=== PATIENT | female | born 1985 | race Hispanic/Latino ===

== ENCOUNTER 2016-08-25 00:49 | Emergency (ER) | payer OTHER ==
[2016-08-25 01:06] VITALS: O2SAT 99
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
[2016-08-25 01:59] LABS: RBC URINE 4 /hpf (0-3); URINE BILIRUBIN NEGATIVE (NEGATIVE); URINE BLOOD 2+ (NEGATIVE); URINE COLOR Yellow (YELLOW); URINE GLUCOSE (UA) NORMAL (Normal); URINE KETONE NEGATIVE (NEGATIVE); URINE LEUKOCYTE ESTERASE NEG Leu/uL (Negative); URINE PROTEIN NEGATIVE (NEGATIVE); URINE UROBILINOGEN NORMAL mg/dL (0.2-1.0); WBC URINE 1 /hpf (0-5)
[2016-08-25 04:53] VITALS: BP 118/68; PULSE 70; RESP 14; TEMP 97.8
== END 2016-08-25 05:04 | disposition home or self-care (01) ==
LOC: C.ER 00:49
DX: T76.21XA Adult sexual abuse, suspected, initial encounter (principal)

== ENCOUNTER 2016-09-09 23:20 | Emergency (ER) | payer OTHER ==
[2016-09-09 23:45] VITALS: RESP 16; O2SAT 100
--- NOTE | 2016-09-10 00:48 | C.PDOC ---
History Of Present Illness A 30 y/o female c/o a painful lump to the rectum that she noticed today after her hard BM and pt reports as well that she ran out of anxiety meds and felt anxious today. Pt request refill of her anxiety medications. Pt denies fever, chills, rectal bleeding, abdominal pain, nausea, vomiting, diarrhea, constipation, or any other complaints. Time Seen by Provider: 09/10/16 00:07 Chief Complaint (Nursing): Anxiety History Per: Patient History/Exam Limitations: no limitations Onset/Duration Of Symptoms: Hrs Current Symptoms Are (Timing): Still Present Severity: Mild Recent travel outside of the [place]: No Additional History Per: Patient Past Medical History Reviewed: Historical Data, Nursing Documentation, Vital Signs Vital Signs: Last Vital Signs Temp 97.8 F 09/10/16 01:10 Pulse 106 H 09/10/16 01:10 Resp 16 09/10/16 01:10 BP 100/67 09/10/16 01:10 Pulse Ox 100 09/10/16 03:06 - Medical History PMH: Anxiety, Asthma, Bipolar Disorder Family History: States: Unknown Family Hx - Social History Hx Alcohol Use: No Hx Substance Use: No - Immunization History Hx Tetanus Toxoid Vaccination: No Hx Influenza Vaccination: No Hx Pneumococcal Vaccination: No Review Of Systems Except As Marked, All Systems Reviewed And Found Negative. Constitutional: Negative for: Fever, Chills Gastrointestinal: Negative for: Nausea, Vomiting, Abdominal Pain, Diarrhea, Constipation Genitourinary: Positive for: Pelvic Pain (Lump in rectum). Negative for: Other (Rectal bleeding) Psych: Positive for: Anxiety Physical Exam - Physical Exam Appears: Non-toxic, No Acute Distress (Calm) Skin: Warm, Dry Head: Atraumatic, Normacephalic Eye(s): bilateral: Normal Inspection, PERRL, EOMI Neck: Supple Chest: Symmetrical Cardiovascular: Rhythm Regular Respiratory: Normal Breath Sounds, No Rhonchi, No Wheezing Gastrointestinal/Abdominal: Soft, No Tenderness Rectal: No Melena, No Blood Streaked Stool, Hemorrhoids (Small external. No fissure or abscess), Tenderness (minimal tenderness at site) Extremity: Normal ROM, No Tenderness, No Pedal Edema, Capillary Refill (<2secs) , No Deformity, No Swelling Neurological/Psych: Oriented x3, Normal Speech, Normal Cognition, Other (No focal deficit) Gait: Steady ED Course And Treatment O2 Sat by Pulse Oximetry: 100 (RA) Pulse Ox Interpretation: Normal Progress Note: Impression: A 30 y/o female c/o a painful lump to the rectum and anxiety today. Plans: UA, reassess. Pt has appointment with psychiatrist in 2 days. Pt was given 2 days of medication course and was instructed to follow up with PMD as well if symptoms persists. Disposition Counseled Patient/Family Regarding: Diagnosis, Need For Followup, Rx Given - Disposition Referrals: Psychiatrist, PMD [Other] Disposition: HOME/ ROUTINE Disposition Time: 00:49 Condition: STABLE Additional Instructions: Do Sitz baths as explained Use anusol suppositories and stool softeners Keep appointment with your psychiatrist Return to ER if worse Prescriptions: Docusate Sodium [Colace] 100 mg PO TID #20 capsule Hydrocortisone [Anusol-HC] 25 mg RC BID #20 sup Lamotrigine [Lamictal] 150 mg PO HS #3 tab Risperidone [Risperdal] 0.5 mg PO BID #7 tablet Instructions: Hemorrhoids (ED), Anxiety (ED) - Clinical Impression Clinical Impression: Anxiety, External hemorrhoid - Scribe Statement The provider has reviewed the documentation as recorded by the Scribe Enedina lu All medical record entries made by the Losibnahum were at my direction and personally dictated by me. I have reviewed the chart and agree that the record accurately reflects my personal performance of the history, physical exam, medical decision making, and the department course for this patient. I have also personally directed, reviewed, and agree with the discharge instructions and disposition.
[2016-09-10 01:11] VITALS: BP 100/67; PULSE 106; TEMP 97.8
== END 2016-09-10 01:15 | disposition home or self-care (01) ==
LOC: C.ER 23:20
DX: K64.4 Residual hemorrhoidal skin tags (principal); F41.9 Anxiety disorder, unspecified

== ENCOUNTER 2017-08-16 22:47 | Emergency (ER) | payer MEDICAID, OTHER ==
[2017-08-16 22:48] VITALS: BMI 22.3
[2017-08-16 22:54] VITALS: BP 111/74; PULSE 95; RESP 16; TEMP 98.2; O2SAT 98
--- NOTE | 2017-08-16 23:17 | C.PDOC ---
History Of Present Illness 31 yo female come in request test. Pt reports, last menstrual 07/22/17, " missed few days now". Pt admits, test was negative at home few days ago " want to confirm". Otherwise, pt denies fever, chills, recent illness, abd. pain, N/V, denies vaginal irritation or discharges, vaginal bleeding, back pain, UTI sx. Ambulate to ED for evaluation, not in any apparent distress. Time Seen by Provider: 08/16/17 22:52 Chief Complaint (Nursing): Medical Clearance History Per: Patient Past Medical History Reviewed: Historical Data, Nursing Documentation, Vital Signs Vital Signs: Last Vital Signs Temp 98.2 F 08/16/17 22:52 Pulse 95 H 08/16/17 22:52 Resp 16 08/16/17 22:52 BP 111/74 08/16/17 22:52 Pulse Ox 98 08/16/17 23:20 - Medical History PMH: Anxiety, Asthma, Bipolar Disorder, Bronchitis, COPD, Depression, GERD, HTN (Not taking medication for HTN - Normal BP in ER), Hyperthyroidism, Migraine, Post Traumatic Stress Disorder Denies: Alzheimer's Disease, Anemia, Arthritis, Atrial Fibrillation, CAD, Cardia Arrhythmia, CHF, Crohn's Disease, Dementia, Diabetes, Diverticulitis, Emphysema, Fractures, Gastritis, Gall Bladder Disease, Hepatitis, HIV, Hypercholesterolemia, Hypothyroidism, Kidney Stones, Mitral Valve Prolapse, Multiple Sclerosis, Osteoporosis, Pancreatitis, Paranoia, Parkinson's Disease, Peripheral Edema, Pneumonia, Pulmonary Embolism, Chronic Kidney Disease, Rheumatoid Arthritis, Schizophrenia, Seizures, Sickle Cell Disease, Sexually Transmitted Disease, Sleep Apnea, TIA Surgical History: Denies: Appendectomy, CABG, Carotid Endarterectomy, Cholecystectomy, Coronary Stent, Pacemaker, Tonsillectomy Family History: States: Unknown Family Hx - Social History Hx Alcohol Use: No Hx Substance Use: No - Immunization History Hx Tetanus Toxoid Vaccination: No Hx Influenza Vaccination: No Hx Pneumococcal Vaccination: No Review Of Systems Except As Marked, All Systems Reviewed And Found Negative. Constitutional: Negative for: Fever, Chills ENT: Negative for: Throat Pain Cardiovascular: Negative for: Chest Pain, Paroxysmal Noc. Dyspnea Respiratory: Negative for: Cough, Shortness of Breath Gastrointestinal: Negative for: Nausea, Vomiting, Abdominal Pain Genitourinary: Negative for: Dysuria, Incontinence, Vaginal Discharge, Vaginal Bleeding Musculoskeletal: Negative for: Back Pain Neurological: Negative for: Headache, Dizziness Physical Exam - Physical Exam Appears: Well, Non-toxic, No Acute Distress Skin: Normal Color, Warm, Dry, No Rash Head: Normacephalic Eye(s): bilateral: PERRL Nose: No Flaring Oral Mucosa: Moist Throat: No Erythema Neck: Trachea Midline, Supple Cardiovascular: Rhythm Regular, No Murmur Respiratory: No Decreased Breath Sounds, No Accessory Muscle Use, No Stridor, No Wheezing Gastrointestinal/Abdominal: Soft, No Tenderness, No Distention, No Guarding Back: No CVA Tenderness Extremity: Normal ROM, No Deformity, No Swelling Neurological/Psych: Oriented x3, Normal Speech ED Course And Treatment - Laboratory Results Urine POC: Negative O2 Sat by Pulse Oximetry: 98 Pulse Ox Interpretation: Normal Progress Note: test (-). Pt advised and ref. to f/u with PMD, FILES SUPERVISOR in 2-3 days for re-evaluation. return if any new changes. Disposition Counseled Patient/Family Regarding: Diagnosis, Need For Followup - Disposition Referrals: [facility] [Outside] [facility] [Outside] Disposition: HOME/ ROUTINE Disposition Time: 23:02 Condition: STABLE Instructions: Tests Forms: [employer] ([place]) - Clinical Impression Clinical Impression: test negative
== END 2017-08-16 23:24 | disposition home or self-care (01) ==
LOC: C.ER 22:47
DX: Z32.02 Encounter for pregnancy test, result negative (principal)

== ENCOUNTER 2017-10-19 08:59 | Emergency (ER) | payer MEDICAID, OTHER ==
[2017-10-19 09:00] VITALS: BMI 22.3
[2017-10-19 09:07] VITALS: TEMP 98.1
[2017-10-19] MEDS ORDERED: Bacitracin 500 Units/gm Oint Foilpak UD TOP ONE (09:19)
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
[2017-10-19] MEDS ORDERED: Bacitracin 500 Units/gm Oint Foilpak UD ONE (09:27)
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
[2017-10-19 10:34] VITALS: BP 122/68; PULSE 70; RESP 16
[2017-10-19 11:03] VITALS: O2SAT 100
== END 2017-10-19 10:33 | disposition home or self-care (01) ==
LOC: C.ER 08:59
DX: S00.83XA Contusion of other part of head, initial encounter (principal); S40.021A Contusion of right upper arm, initial encounter; Y04.0XXA Assault by unarmed brawl or fight, initial encounter

== ENCOUNTER 2018-02-28 22:19 | Emergency (ER) | payer MEDICAID ==
[2018-02-28 22:19] VITALS: BMI 22.3
[2018-02-28 22:52] LABS: HCG,QUALITATIVE URINE POSITIVE (NEGATIVE); SQUAMOUS EPITHIAL 2 /hpf (0-5); URINE BACTERIA RARE (<OCC); URINE BILIRUBIN NEGATIVE (NEGATIVE); URINE BLOOD 1+ (NEGATIVE); URINE CLARITY Clear (Clear); URINE COLOR Yellow (YELLOW); URINE GLUCOSE (UA) NORMAL (Normal); URINE LEUKOCYTE ESTERASE NEG Leu/uL (Negative); URINE PROTEIN NEGATIVE (NEGATIVE)
[2018-02-28] MEDS ORDERED: Sodium Chloride 0.9% 1,000 ML IV ONE (22:54)
--- NOTE | 2018-02-28 22:55 | C.PDOC ---
History Of Present Illness 32 year old female presents to the ER with a complaint of nonspecific abdominal pain described as light and associated with anxiety. Denies nausea, vomiting, diarrhea, or possible . Chief Complaint (Nursing): Abdominal Pain History Per: Patient History/Exam Limitations: no limitations Onset/Duration Of Symptoms: Days Current Symptoms Are (Timing): Still Present Quality Of Discomfort: Other (Light) Associated Symptoms: Other (Anxiety). denies: Nausea, Vomiting, Diarrhea Exacerbating Factors: None Alleviating Factors: None Recent travel outside of the [place]: No Abnormal Vaginal Bleeding: No Past Medical History Reviewed: Historical Data, Nursing Documentation, Vital Signs Vital Signs: Last Vital Signs Temp 98.7 F 02/28/18 22:20 Pulse 88 02/28/18 22:20 Resp 20 02/28/18 22:20 BP 112/70 02/28/18 22:20 Pulse Ox 98 02/28/18 22:20 - Medical History PMH: Anxiety, Asthma, Bipolar Disorder, Bronchitis, COPD, Depression, GERD, HTN (Not taking medication for HTN - Normal BP in ER), Hyperthyroidism, Migraine, Post Traumatic Stress Disorder Denies: Alzheimer's Disease, Anemia, Arthritis, Atrial Fibrillation, CAD, Cardia Arrhythmia, CHF, Crohn's Disease, Dementia, Diabetes, Diverticulitis, Emphysema, Fractures, Gastritis, Gall Bladder Disease, Hepatitis, HIV, Hypercholesterolemia, Hypothyroidism, Kidney Stones, Mitral Valve Prolapse, Multiple Sclerosis, Osteoporosis, Pancreatitis, Paranoia, Parkinson's Disease, Peripheral Edema, Pneumonia, Pulmonary Embolism, Chronic Kidney Disease, Rheumatoid Arthritis, Schizophrenia, Seizures, Sickle Cell Disease, Sexually Transmitted Disease, Sleep Apnea, TIA Surgical History: Denies: Appendectomy, CABG, Carotid Endarterectomy, Cholecystectomy, Coronary Stent, Pacemaker, Tonsillectomy Family History: States: Unknown Family Hx - Social History Hx Alcohol Use: No Hx Substance Use: No - Immunization History Hx Tetanus Toxoid Vaccination: No Hx Influenza Vaccination: No Hx Pneumococcal Vaccination: No Review Of Systems Constitutional: Negative for: Fever, Chills Cardiovascular: Negative for: Chest Pain, Palpitations Respiratory: Negative for: Cough, Shortness of Breath Gastrointestinal: Positive for: Abdominal Pain. Negative for: Nausea, Vomiting, Diarrhea Neurological: Negative for: Weakness, Numbness Psych: Positive for: Anxiety Physical Exam - Physical Exam Appears: Non-toxic, No Acute Distress Skin: Normal Color, Warm, Dry Head: Atraumatic, Normacephalic Eye(s): bilateral: Normal Inspection Oral Mucosa: Moist Chest: Symmetrical, No Tenderness Cardiovascular: Rhythm Regular Respiratory: Normal Breath Sounds, No Rales, No Rhonchi, No Wheezing Gastrointestinal/Abdominal: Soft, Tenderness (Mild epigastric), No Guarding, No Rebound Back: No CVA Tenderness Extremity: Normal ROM (x4) Neurological/Psych: Oriented x3, Normal Speech ED Course And Treatment - Laboratory Results Result Diagrams: 02/28/18 23:01 02/28/18 23:01 O2 Sat by Pulse Oximetry: 98 (Room air) Pulse Ox Interpretation: Normal Progress Note: Blood work and urinalysis ordered. IV fluids administered. Disposition Counseled Patient/Family Regarding: Diagnosis - Disposition Referrals: [facility] [Outside] Disposition: HOME/ ROUTINE Disposition Time: 01:36 Condition: STABLE Prescriptions: 21/Iron Fu/Folic Acid [ Complete Caplet] 1 each PO DAILY #60 tablet Forms: [facility] ([place]) - POA Present On Arrival: None - Clinical Impression Clinical Impression: - Scribe Statement The provider has reviewed the documentation as recorded by the Scribe Esdras Fajardo All medical record entries made by the Scribe were at my direction and personally dictated by me. I have reviewed the chart and agree that the record accurately reflects my personal performance of the history, physical exam, medical decision making, and the department course for this patient. I have also personally directed, reviewed, and agree with the discharge instructions and disposition.
[2018-02-28 23:05] LABS: BASO % 0.5 % (0.0-2.0); EOS % 0.8 % (0.0-4.0); HEMOGLOBIN 11.9 g/dL (11.0-16.0); LYMPH # 2.3 K/uL (1.0-4.3); LYMPH % 37.3 % (20.0-40.0); MEAN CORPUSCULAR HGB CONC 35.2 g/dL (33.0-37.0); MEAN PLATELET VOLUME 8.4 fL (7.2-11.7); MONO # 0.5 K/uL (0.0-0.8); MONO % 7.7 % (0.0-10.0); NEUT # 3.3 K/uL (1.8-7.0); NEUT % 53.7 % (50.0-75.0); NRBC % 0.1 % (0.0-2.0); RBC 4.25 Mil/uL (3.80-5.20); RED CELL DISTRIBUTION WIDTH 12.9 % (11.5-14.5); WHITE BLOOD COUNT 6.2 K/uL (4.8-10.8)
[2018-02-28 23:07] LABS: MEAN CELL VOLUME 79.7 fL (81.0-99.0)
[2018-02-28 23:20] LABS: ALB/GLOB RATIO 1.3 (1.0-2.1); ALBUMIN 4.1 g/dL (3.5-5.0); ALT/SGPT 20 U/L (9-52); AST/SGOT 20 U/L (14-36); BLOOD UREA NITROGEN 10 mg/dL (7-17); CALCIUM 9.3 mg/dl (8.6-10.4); GFR NON-AFRICAN AMERICAN > 60; LIPASE 42 U/L (23-300)
[2018-03-01 02:10] VITALS: BP 117/58; PULSE 89; RESP 17; TEMP 97.8
[2018-03-01 06:10] VITALS: O2SAT 98
== END 2018-03-01 02:10 | disposition home or self-care (01) ==
LOC: C.ER 22:19
DX: O26.891 Other specified pregnancy related conditions, first trimester (principal); Z3A.00 Weeks of gestation of pregnancy not specified
CPT/HCPCS: 80053; 81001; 83690; 84703; 85025; 96360; 96361; 99284; J7030

== ENCOUNTER 2018-03-23 18:09 | Emergency (ER) | payer MEDICAID ==
[2018-03-23 18:10] VITALS: BMI 22.3
[2018-03-23] MEDS ORDERED: Sodium Chloride 0.9% 1,000 ML IV ONE (18:56)
[2018-03-23 18:57] VITALS: O2SAT 99
[2018-03-23 19:05] LABS: BASO % 0.2 % (0.0-2.0); EOS % 0.1 % (0.0-4.0); HEMOGLOBIN 12.5 g/dL (11.0-16.0); LYMPH # 0.2 K/uL (1.0-4.3); LYMPH % 3.7 % (20.0-40.0); MEAN CELL VOLUME 79.4 fL (81.0-99.0); MEAN CORPUSCULAR HEMOGLOBIN 27.4 pg (27.0-31.0); MEAN CORPUSCULAR HGB CONC 34.5 g/dL (33.0-37.0); MEAN PLATELET VOLUME 8.4 fL (7.2-11.7); MONO # 0.3 K/uL (0.0-0.8); MONO % 6.1 % (0.0-10.0); NEUT # 4.1 K/uL (1.8-7.0); NEUT % 89.9 % (50.0-75.0); PLATELET COUNT 155 K/uL (130-400); RBC 4.56 Mil/uL (3.80-5.20); RED CELL DISTRIBUTION WIDTH 12.5 % (11.5-14.5); WHITE BLOOD COUNT 4.5 K/uL (4.8-10.8)
[2018-03-23 19:20] LABS: BLOOD UREA NITROGEN 6 mg/dL (7-17); CALCIUM 9.6 mg/dl (8.6-10.4); GFR NON-AFRICAN AMERICAN > 60
[2018-03-23 19:57] LABS: LYMPHOCYTE 3 % (20-40); MONOCYTE 7 % (0-10); NEUTROPHIL 90 % (50-75); PLATELET ESTIMATE NORMAL (NORMAL); TOTAL CELLS COUNTED 100
--- NOTE | 2018-03-23 20:21 | C.PDOC ---
History Of Present Illness 32 year old female presents to the emergency department with complaints of lower abdominal pain, nausea, vomiting, and headache over the last 4 hours. Patient states that she is currently 6 weeks , and states that she has not had any previous pre- care with her current . Patient reports that she . Time Seen by Provider: 03/23/18 18:30 Chief Complaint (Nursing): Abdominal Pain History Per: Patient History/Exam Limitations: no limitations Onset/Duration Of Symptoms: Hrs (4) Current Symptoms Are (Timing): Still Present Location Of Pain/Discomfort: Other (lower abdomen) Quality Of Discomfort: "Pain" Associated Symptoms: Nausea, Vomiting, Other (headache) Past Medical History Reviewed: Historical Data, Nursing Documentation, Vital Signs Vital Signs: Last Vital Signs Temp 100.8 F H 03/23/18 18:20 Pulse 137 H 03/23/18 18:56 Resp 24 03/23/18 18:56 BP 113/58 L 03/23/18 18:56 Pulse Ox 99 03/23/18 18:56 - Medical History PMH: Anxiety, Asthma, Bipolar Disorder, Bronchitis, COPD, Depression, GERD, HTN, Hyperthyroidism, Migraine, Post Traumatic Stress Disorder, Schizophrenia Denies: Alzheimer's Disease, Anemia, Arthritis, Atrial Fibrillation, CAD, Cardia Arrhythmia, CHF, Crohn's Disease, Dementia, Diabetes, Diverticulitis, Emphysema, Fractures, Gastritis, Gall Bladder Disease, Hepatitis, HIV, Hypercholesterolemia, Hypothyroidism, Kidney Stones, Mitral Valve Prolapse, Multiple Sclerosis, Osteoporosis, Pancreatitis, Paranoia, Parkinson's Disease, Peripheral Edema, Pneumonia, Pulmonary Embolism, Chronic Kidney Disease, Rheumatoid Arthritis, Seizures, Sickle Cell Disease, Sexually Transmitted Disease, Sleep Apnea, TIA Surgical History: No Surg Hx Denies: Appendectomy, CABG, Carotid Endarterectomy, Cholecystectomy, Coronary Stent, Pacemaker, Tonsillectomy Family History: States: No Known Family Hx - Social History Hx Alcohol Use: No Hx Substance Use: No - Immunization History Hx Tetanus Toxoid Vaccination: No Hx Influenza Vaccination: No Hx Pneumococcal Vaccination: No Review Of Systems Constitutional: Negative for: Fever, Chills Gastrointestinal: Positive for: Nausea, Vomiting, Abdominal Pain. Negative for: Diarrhea Neurological: Positive for: Headache Physical Exam - Physical Exam Appears: Non-toxic, In Acute Distress (anxious) Skin: Normal Color, Warm, Dry Head: Atraumatic, Normacephalic Eye(s): bilateral: Normal Inspection, PERRL, EOMI Nose: Normal Oral Mucosa: Moist Neck: Normal, Supple Chest: Symmetrical, No Tenderness Cardiovascular: Rhythm Regular, No Murmur Respiratory: No Rales, No Rhonchi, No Wheezing Gastrointestinal/Abdominal: Soft, Tenderness (minimal lower abdominal tenderness), No Guarding, No Rebound ED Course And Treatment - Laboratory Results Result Diagrams: 03/23/18 19:00 03/23/18 19:00 O2 Sat by Pulse Oximetry: 99 - CT Scan/US OB transvaginal Other Rad Studies (CT/US): Read By Radiologist, Radiology Report Reviewed CT/US Interpretation: Impression. 1. Single live intrauterine gestation. 2. Right ovarian cyst. Medical Decision Making Medical Decision Making: Ultrasound done, patient with SLIUP, EGA 9w5d via CRL or 9w2d via gestational sac diameter. FHR 157 bpm. Lab and ultrasound results discussed with patient. She states "my mom thinks my nausea and vomiting are from the flu". She denies sick contacts or known exposure to the flu, however she was febrile upon arrival. Will empirically give Rx for tamiflu. Patient with repeat HR 113, improved from 137 upon arrival. Temperature also slightly improved. Stable for discharge home at this time. Disposition - Disposition Disposition: HOME/ ROUTINE Disposition Time: 22:39 Condition: STABLE Additional Instructions: VON DOUGLAS, thank you for letting us take care of you today. Your provider was Bhavna Carrero MD and you were treated for NAUSEA,VOMITING. The emergency medical care you received today was directed at your acute symptoms. If you were prescribed any medication, please fill it and take as directed. It may take several days for your symptoms to resolve. Return to the Emergency Department if your symptoms worsen, do not improve, or if you have any other problems. Please contact your doctor or call one of the physicians/clinics you have been referred to that are listed on the Patient Visit Information form that is included in your discharge packet. Bring any paperwork you were given at discharge with you along with any medications you are taking to your follow up visit. Our treatment cannot replace ongoing medical care by a primary care provider outside of the emergency department. Thank you for allowing the [facility] team to be part of your care today. If you had an X-Ray or CT scan: A Radiologist will review the ED reading if any change in treatment is needed we will contact you. If you had a blood, urine, or wound culture: It will take several days for the results, if any change in treatment is needed we will contact you. If you had an STI test: It will take 48 hours for the results. Please call after 1 week if you have not heard back. Prescriptions: Oseltamivir Phosphate [Tamiflu] 75 mg PO DAILY #10 capsule Instructions: Morning Sickness (DC) Forms: [employer] (Mauritanian) - Clinical Impression Clinical Impression: Nausea, Vomiting, Fever,
[2018-03-23 22:18] VITALS: BP 95/64; PULSE 113; RESP 18; TEMP 98.4
--- NOTE | 2018-03-24 08:44 | US ---
Pelvic ultrasound HISTORY: . Pain. Comparison: None available. Technique: Real-time sonography was performed through the pelvis utilizing transabdominal and transvaginal techniques. FINDINGS: Uterus: 10.1 x 6.0 x 7.0 centimeters. Heterogeneous echotexture. Anteverted. Cervix measures 4.7 centimeters. Intrauterine gestational sac measuring 2.9 centimeters corresponding to a gestational age of 9 weeks and 2 days. Yolk sac measures 4.8 millimeters. Nordic-rump length measures 2.9 centimeters corresponding to a gestational age of 9 weeks and 5 days. heart rate of 157 beats per minute. No free fluid in the pelvic cul-de-sac. Right ovary: 5.4 x 2.9 x 3.0 centimeters. Normal flow. Heterogeneous cyst measuring 3.2 x 2.8 x 3.6 centimeters. Left ovary: 2.2 x 1.9 x 2.1 centimeters. Normal flow. Impression: Intrauterine corresponding to a gestational age of 9 weeks and 5 days by crown-rump length of 2.9 centimeters. heart rate of 157 beats per minute. Right ovarian cyst measuring 3.6 centimeters. Limited 1st trimester ultrasound for viability purposes only. Continued interval followup with serial ultrasound, serial HCG levels, and gynecological consultation would be helpful if clinically indicated. A preliminary report was generated at 10:02 p.m. on 03/23/[address] Joshua Dhillon from [employer]
== END 2018-03-23 22:17 | disposition home or self-care (01) ==
LOC: C.ER 18:09
DX: O21.9 Vomiting of pregnancy, unspecified (principal); O26.891 Other specified pregnancy related conditions, first trimester; R50.9 Fever, unspecified; Z3A.09 9 weeks gestation of pregnancy
CPT/HCPCS: 76805; 76817; 80048; 84702; 85025; 96361; 96374; 99284; J0131; J2405; J7030

== ENCOUNTER 2018-08-04 23:55 | Emergency (ER) | payer MEDICAID ==
[2018-08-05 00:07] VITALS: BMI 26.4
[2018-08-05 05:28] VITALS: BP 96/60; PULSE 95; TEMP 98
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
== END 2018-08-05 01:26 | disposition home or self-care (01) ==
LOC: C.EROB 23:55
DX: O26.893 Other specified pregnancy related conditions, third trimester (principal); Z3A.28 28 weeks gestation of pregnancy